=== PATIENT | female | born 1940 | race Caucasian/White ===

== ENCOUNTER → 2019-12-27 | Outpatient (CLI) | payer MEDICARE, OTHER ==
--- NOTE | 2019-12-27 12:48 | Diagnostic Imaging Report ---
PROCEDURE: US Renal Bilateral. INDICATION: Renal insufficiency TECHNIQUE: Multiple real-time grayscale sonographic images were obtained of the kidneys. CORRELATION: None FINDINGS: RIGHT KIDNEY: 9.2 x 4.1 x 4.3 cm. LEFT KIDNEY: 9.4 x 4.6 x 4.2 cm. There is normal echotexture of the left renal parenchyma. No definitive calcification or hydronephrosis. URINARY BLADDER: The partially distended bladder has an unremarkable appearance. Bilateral ureteral jets are present. IMPRESSION: 1. Unremarkable renal sonogram. Dictated by: Dictated on workstation # [id number]
== END ==
LOC: RAD 11:35
PROVIDERS: ATTEND Family Medicine
DX: N28.9 Disorder of kidney and ureter, unspecified (principal)
CPT/HCPCS: 76770